=== PATIENT | female | born 2000 | race Hispanic/Latino ===

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

== ENCOUNTER 2021-12-02 19:24 | Emergency (ER) | payer SELFPAY ==
[2021-12-02 20:11] LABS: #Eosinphils 0.1 thou/uL (0.0-0.7); #Lymphocytes 2.6 thou/uL (1.20-3.40); #Monocytes 0.6 thou/uL (0.11-0.59); #Neutrophils 4.8 thou/uL (1.40-6.50); %Basophils 0.2 % (0.0-1.0); %Eosinophils 0.8 % (0.0-10.0); %Lymphocytes 32.2 % (21.0-51.0); %Monocytes 7.7 % (0.0-10.0); %Neutrophils 59.1 % (42.0-75.0); Hemoglobin 13.8 g/dL (12.0-16.0); Mean Corpuscular HGB CONC 32.5 g/dL (32.0-36.0); Mean Corpuscular Hemoglobin 29.6 pg (27.0-31.0); Mean Corpuscular Volume 91.1 fL (78.0-98.0); Mean Platelet Volume 6.6 fL (7.4-10.4); Platelet Count 243 thou/uL (130-400); Red Blood Cell (RBC) Count 4.65 mill/uL (4.20-5.40); White Blood Cell (WBC) Count 8.1 thou/uL (4.8-10.8)
[2021-12-02 20:32] LABS: ALT (SGPT) 15 U/L (8-55); AST (SGOT) 25 U/L (5-34); Acetaminophen Less than 10.0 mcg/mL (10.0-30.0); Albumin 4.3 g/dL (3.5-5.0); Alcohol Less than 10 mg/dL (Less than 10); Alkaline Phosphatase 77 U/L (40-110); Anion Gap 11 mmol/L (10-20); BUN (Urea Nitrogen) 11 mg/dL (7.0-18.7); Bilirubin, Total 0.4 mg/dL (0.2-1.2); Calc. Creatinine Clearance 0 mL/min (70-130); Calcium 9.2 mg/dL (7.8-10.44); Carbon Dioxide 26 mmol/L (22-29); Chloride 106 mmol/L (98-107); Estimated GFR 111; Glucose 94 mg/dL (70-105); Potassium 3.6 mmol/L (3.5-5.1); Protein, Total 7.3 g/dL (6.0-8.3); Salicylate Less than 8.0 mg/dL (15.0-30.0); Sodium 139 mmol/L (136-145)
[2021-12-02 20:37] LABS: Pregnancy Test - Urine (BHCG) Negative (Negative); Pregu Control Background? CLEAR/WHITE (CLR/WHITE); Pregu Control Bar Appear? YES (CONTROL BAR); Specific Gravity 1.012 (1.002-1.036)
[2021-12-02 20:45] LABS: Amphetamine Not Detected (NotDetected); Barbiturates Screen Not Detected (NotDetected); Benzodiazepine Screen Not Detected (NotDetected); Cocaine Metabolite Screen Not Detected (NotDetected); Methadone Not Detected (NotDetected); Methamphetamine Not Detected (NotDetected); Opiate Screen Not Detected (NotDetected); Oxycodone Screen Not Detected (NotDetected); Phencyclidine (PCP) Not Detected (NotDetected); THC/Cannabinoid Screen Not Detected (NotDetected); Tricyclic Screen Not Detected (NotDetected)
== END 2021-12-02 23:14 | disposition home or self-care (01) ==
LOC: ERS 19:24
DX: R45.851 Suicidal ideations (principal)
CPT/HCPCS: 36415; 80053; 80306; 80307; 81025; 84443; 85025; 93005

== ENCOUNTER 2022-01-22 14:13 | Emergency (ER) | payer SELFPAY | END 2022-01-22 16:09 | disposition home or self-care (01) | LOC: ERS 14:13 | DX: H60.91 Unspecified otitis externa, right ear (principal) | CPT/HCPCS: 99282 ==

== ENCOUNTER 2022-09-23 17:02 | Emergency (ER) | payer SELFPAY ==
[~2022-09-23 17:02] MED LIST: Iopamidol-370 76% 500 ML MDV (1 ML CHARGE) ONE
[2022-09-23] MEDS ORDERED: Ondansetron PF 4 MG/2 ML Vial ONE (18:00)
[2022-09-23] MEDS ORDERED: Ketorolac Tromethamine 30 MG/ML VIAL ONE (18:00)
[2022-09-23 18:10] LABS: Bilirubin 1+ (Negative); Blood, Urine Trace (Negative); Clarity Clear (Clear); Glucose, Urine (Dipstick) Normal (Negative); Ketone, Urine Greater than 150 mg/dL (Negative); Leukocyte Negative Leu/uL (Negative); Nitrite Negative (Negative); Protein, Urine (Dipstick) 100 mg/dL (Neg-Trace); RBC/HPF 0-3 HPF (0-3); Urobilinogen 3 mg/dL (Less than 2); WBC/HPF 0-3 HPF (0-3); pH, Urine 5.5 (5.0-9.0)
[2022-09-23 18:11] LABS: Bacteria/HPF 1+ HPF (None Seen)
[2022-09-23 18:11] LABS: #Lymphocytes 2.2 thou/uL (1.20-3.40); #Monocytes 1.2 thou/uL (0.11-0.59); #Neutrophils 8.1 thou/uL (1.40-6.50); %Basophils 0.2 % (0.0-1.0); %Eosinophils 0.2 % (0.0-10.0); %Lymphocytes 19.3 % (21.0-51.0); %Monocytes 10.2 % (0.0-10.0); %Neutrophils 70.1 % (42.0-75.0); Hemoglobin 15.8 g/dL (12.0-16.0); Mean Corpuscular HGB CONC 33.7 g/dL (32.0-36.0); Mean Corpuscular Hemoglobin 29.4 pg (27.0-31.0); Mean Corpuscular Volume 87.2 fl (78.0-98.0); Mean Platelet Volume 6.2 fL (7.4-10.4); Platelet Count 307 10x3/uL (130-400); RBC Distribution Width 11.7 % (11.5-14.5); Red Blood Cell (RBC) Count 5.38 mill/uL (4.20-5.40); White Blood Cell (WBC) Count 11.6 10x3/uL (4.8-10.8)
[2022-09-23 18:12] LABS: Pregnancy Test - Urine (BHCG) Negative (Negative); Pregu Control Background? CLEAR/WHITE (CLR/WHITE); Pregu Control Bar Appear? YES (CONTROL BAR)
[2022-09-23 18:31] LABS: ALT (SGPT) 15 U/L (8-55); AST (SGOT) 32 U/L (5-34); Alkaline Phosphatase 120 U/L (40-110); Anion Gap 22 mmol/L (10-20); BUN (Urea Nitrogen) 21 mg/dL (7.0-18.7); Bilirubin, Total 0.5 mg/dL (0.2-1.2); Calc. Creatinine Clearance 0 mL/min (70-130); Calcium 10.3 mg/dL (7.8-10.44); Carbon Dioxide 22 mmol/L (22-29); Chloride 99 mmol/L (98-107); Estimated GFR 76; Glucose 89 mg/dL (70-105); Lipase 14 U/L (8-78); Potassium 3.9 mmol/L (3.5-5.1); Sodium 139 mmol/L (136-145)
== END 2022-09-23 21:13 | disposition home or self-care (01) ==
LOC: ERS 17:02
DX: R11.2 Nausea with vomiting, unspecified (principal); E86.0 Dehydration
CPT/HCPCS: 74177; 80053; 81003; 81015; 81025; 83690; 85025; 93005; 96361; 96374; 96375; J1885; J2405; Q9967

== ENCOUNTER 2023-03-31 15:18 | Emergency (ER) | payer SELFPAY ==
[2023-03-31 16:29] LABS: #Basophils 0.1 thou/uL (0.0-0.2); #Eosinphils 0.1 thou/uL (0.0-0.7); #Monocytes 1.2 thou/uL (0.11-0.59); #Neutrophils 8.1 thou/uL (1.40-6.50); %Basophils 0.4 % (0.0-1.0); %Eosinophils 0.7 % (0.0-10.0); %Lymphocytes 17.6 % (21.0-51.0); %Monocytes 10.7 % (0.0-10.0); %Neutrophils 70.4 % (42.0-75.0); Hematocrit 45.5 % (36.0-47.0); Hemoglobin 15.1 g/dL (12.0-16.0); Mean Corpuscular HGB CONC 33.2 g/dL (32.0-36.0); Mean Corpuscular Hemoglobin 28.8 pg (27.0-31.0); Mean Corpuscular Volume 86.7 fl (78.0-98.0); Mean Platelet Volume 8.5 fL (7.4-10.4); Platelet Count 348 10x3/uL (130-400); RBC Distribution Width 12.5 % (11.5-14.5); Red Blood Cell (RBC) Count 5.25 mill/uL (4.20-5.40); White Blood Cell (WBC) Count 11.4 10x3/uL (4.8-10.8)
[2023-03-31] MEDS ORDERED: Ketorolac Tromethamine 30 MG/ML VIAL ONE (16:54)
[2023-03-31] MEDS ORDERED: Ondansetron PF 4 MG/2 ML Vial ONE (16:55)
[2023-03-31 17:03] LABS: ALT (SGPT) 13 U/L (8-55); AST (SGOT) 28 U/L (5-34); Albumin 5.1 g/dL (3.5-5.0); Alkaline Phosphatase 108 U/L (40-110); Anion Gap 19 mmol/L (10-20); BUN (Urea Nitrogen) 13 mg/dL (7.0-18.7); Calc. Creatinine Clearance 0 mL/min (70-130); Calcium 9.9 mg/dL (7.8-10.44); Carbon Dioxide 22 mmol/L (22-29); Chloride 99 mmol/L (98-107); Estimated GFR 95; Globulin 3.4 g/dL (2.4-3.5); Glucose 79 mg/dL (70-105); Lipase 5 U/L (8-78); Potassium 3.5 mmol/L (3.5-5.1); Protein, Total 8.5 g/dL (6.0-8.3); Sodium 136 mmol/L (136-145)
[2023-03-31 17:07] LABS: Bilirubin, Total 0.4 mg/dL (0.2-1.2)
[2023-03-31 17:25] LABS: BHCG - Serum Negative (NEGATIVE)
[2023-03-31 17:26] LABS: Pregs Control Background? CLEAR/WHITE (CLR/WHITE); Pregs Control Bar Appear? YES (CONTROL BAR)
[2023-03-31 18:48] LABS: SARS-CoV-2 NAA Rapid Test Not Detected (NotDetected)
== END 2023-03-31 19:30 | disposition home or self-care (01) ==
LOC: ERS 15:18
DX: R11.2 Nausea with vomiting, unspecified (principal); E86.0 Dehydration; Z20.822 Contact with and (suspected) exposure to COVID-19
CPT/HCPCS: 36415; 80053; 83690; 84703; 85025; 93005; 96361; 96374; 96375; J1885; J2405

== ENCOUNTER 2025-05-05 10:54 | Emergency (ER) | payer SELFPAY ==
[2025-05-05] MEDS ORDERED: Lidocaine 1% PF 5 ML VIAL ONE (11:37)
[2025-05-05 11:47] LABS: Pregnancy Test - Urine (BHCG) Negative (Negative); Pregu Control Background? CLEAR/WHITE (CLR/WHITE); Pregu Control Bar Appear? YES (CONTROL BAR)
[2025-05-05 11:48] LABS: CAUTI Indications for Culture Pelvic or flank pain; Glucose, Urine (Dipstick) Normal (Negative); Leukocyte Negative Leu/uL (Negative); Protein, Urine (Dipstick) 10 mg/dL (Neg-Trace); RBC/HPF 0-3 HPF (0-3); Specific Gravity, Urine 1.026 (1.002-1.036); WBC/HPF 0-3 HPF (0-3)
[2025-05-05 11:49] LABS: Bacteria/HPF 1+ HPF (None Seen); Urine Culture Reflex No No
[2025-05-05] MEDS ORDERED: Sulfameth/Trimethoprim DS 800-160mg TAB ONE ×2 (12:32→12:33)
[2025-05-05] MEDS ORDERED: Amoxicillin/Potassium Clav 875 MG TAB ONE (12:32)
[2025-05-05 21:37] LABS: Chlamydia by PCR, Vaginal Swab Not Detected (NotDetected); GC by PCR, Vaginal Swab Not Detected (NotDetected)
== END 2025-05-05 13:25 | disposition home or self-care (01) ==
LOC: ERS 10:54
DX: N75.1 Abscess of Bartholin's gland (principal)
CPT/HCPCS: 81001; 81025; 87480; 87491; 87510; 87591; 87660; 90471; 90715